=== PATIENT | female | born 1965 | race American Indian/Alaskan Native ===

== ENCOUNTER 2016-09-21 17:12 | Emergency (ER) | payer SELFPAY ==
[2016-09-21] MEDS ORDERED: MOTRIN PO ONE (20:37)
--- NOTE | 2016-09-21 20:37 | Emergency Department Report ---
Upper Extremity - HPI Chief Complaint: Extremity Problem,Nontraumatic Stated Complaint: SHOULDER/BACK/ARM PAIN Time Seen by Provider: 09/21/16 20:36 Upper Extremity: Left Shoulder Occurred When: >5 Days Severity: moderate Symptoms: Yes Pain with Movement (minor pain with left shoulder abduction), No Deformity, No Limited Range of Movement, No Numbness, No Weakness, No Swelling Other History: 51-year-old female past medical history hypertension presents with approximately 2 weeks of left upper shoulder pain, patient states that she feels discomfort in her upper left shoulder when she ranges her left shoulder. Denies any chest pain shortness of breath or palpitations, states that she has been taking Tylenol with minimal relief of this pain. Denies any history of FL in her mother or father. ED Review of Systems ROS: Stated complaint: SHOULDER/BACK/ARM PAIN Other details as noted in HPI ED Past Medical Hx - Past Medical History Hx Hypertension: Yes Additional medical history: Stomach problems - Surgical History Additional Surgical History: Partial Hysterectomy - Social History Smoking Status: Never Smoker Substance Use Type: Alcohol - Medications Home Medications: Home Medications Medication Instructions Recorded Confirmed Last Taken Type Ibuprofen [Motrin] 600 mg PO Q8H PRN #25 tablet 09/21/16 Unknown Rx Upper Extremity Exam - Exam General: Vital signs noted. No distress. Alert and acting appropriately. Head and Torso: No HEENT Abnormality, No Neck Tenderness, No Chest/Lungs Abnormality, No Abdominal Tenderness, No Back Tenderness Shoulder Exam: Yes Shoulder Tenderness (mild anteriro shoulder tenderss, reproducible anterior deltoid region, no rash on skin), Yes Normal Range of Motion in Shoulder, No Clavicle Tenderness, No Shoulder Deformity, No AC Joint Tenderness Arm Exam: No Arm/Humerus Tenderness, No Arm Deformity Elbow: No Elbow Tenderness, No Normal Range of Motion in Elbow, No Elbow Deformity Forearm: No Forearm Tenderness, No Forearm Deformity, No Pain with Pronation, No Pain with Supination Wrist: Yes Normal ROM in Wrist, No Wrist Tenderness, No Wrist Deformity, No Snuffbox Tenderness, No Pain with Axial Thumb Compression Hand: Yes Normal ROM in Digit(s), No Hand Tenderness, No Hand Deformity, No Digit Tenderness, No Digit(s) Deformity, No Tendon Dysfunction CMS Exam: Yes Normal Distal Pulses (distal radial, brachil pulses strong, cap refill less than 1 second all fingers), Yes Normal Capillary Refill, Yes Normal Distal Sensation, No Broken Skin ED Course Vital Signs 09/21/16 17:21 Temperature 98.2 F Pulse Rate 91 H Respiratory 18 Rate Blood Pressure 140/94 O2 Sat by Pulse 99 Oximetry ED Medical Decision Making - Lab Data Result diagrams: 09/21/16 20:53 09/21/16 20:53 - Medical Decision Making A/P: Musculoskeletal left shoulder pain 1-EKG, troponin, CK-MB within normal limits. Symptoms have been ongoing for almost 2 weeks. CK slightly elevated, patient tolerating by mouth so I encouraged her to increase her oral hydration she states she does not drink water often drinks more juice and coffee. 2-HEART score 1 points Low Score (0-3 points) Risk of MACE of 0.9-1.7%, JUSTIN score 1 points5% risk at 14 days of: all-cause mortality, new or recurrent FL, or severe recurrent ischemia requiring urgent revascularization. pt already on asa 81mg daily and clinical hx suggestive of muscluskeletal etiology of pain, reasomnable to DC w/ pmd and cards f/u, i instructed pt to call the referrals i gave her for f/u 3-Pt referred to PMD and cards 4-patient experienced significant relief of pain with one dose of extra strength Motrin, will give patient short course of Motrin for her discomfort 5- x-ray within normal limits. Critical care attestation.: If time is entered above; I have spent that time in minutes in the direct care of this critically ill patient, excluding procedure time. ED Disposition Clinical Impression: Shoulder pain Qualifiers: Laterality: left Chronicity: acute Qualified Code(s): M25.512 - Pain in left shoulder Disposition: DISCHARGED TO HOME OR SELFCARE Is pt being admited?: No Does the pt Need Aspirin: No Condition: Stable Instructions: Musculoskeletal Pain (ED) Prescriptions: Ibuprofen [Motrin] 600 mg PO Q8H PRN #25 tablet PRN Reason: Pain Referrals: [facility] [Outside] - 3-5 Days BRIELLE HARPER MD [Staff Physician] - 3-5 Days EVA SAM MD [Staff Physician] - 3-5 Days Forms: Accompanied Note, Work/School Release Form(ED) Time of Disposition: 22:08
[2016-09-21 21:09] LABS: Hematocrit 42.1 % (30.3-42.9); Hemoglobin 13.6 gm/dl (10.1-14.3); Mean Corpuscular HGB Conc 32 % (30-34); Mean Corpuscular Hemoglobin 29 pg (28-32); Mean Corpuscular Volume 89 fl (79-97); Platelet Count 192 K/mm3 (140-440); Red Blood Count 4.72 M/mm3 (3.65-5.03); Red Cell Distribution Width 14.8 % (13.2-15.2)
[2016-09-21 21:29] LABS: Creatine Kinase MB 2.1 ng/mL (0.0-4.0)
[2016-09-21 21:30] LABS: Anion Gap 19 mmol/L; BUN/Creatinine Ratio 11.25; Blood Urea Nitrogen 9 mg/dL (7-17); Calcium 9.8 mg/dL (8.4-10.2); Carbon Dioxide 27 mmol/L (22-30); Chloride 96.5 mmol/L (98-107); Creatine Kinase 221 units/L (30-135); Glucose 127 mg/dL (65-100); Potassium 3.8 mmol/L (3.6-5.0); Sodium 139 mmol/L (137-145)
[2016-09-21 22:00] LABS: Basophils % (Manual) 0 % (0.0-1.8); Blastocytes % (Manual) 0 %
[2016-09-21 22:02] LABS: Anisocytosis Few; Diff Status Complete; Platelet Estimate Consistent w Auto
[2016-09-21 22:20] VITALS: BP 117/88
--- NOTE | 2016-09-22 08:41 | XRay Report ---
Left shoulder 3 views. Findings: There is no evidence of fracture or other acute findings. Calcifications seen in the soft tissues adjacent to the lateral humeral head, probably due to tendinitis. A.c. joint narrowing is noted. Impression: No acute findings.
== END 2016-09-21 22:22 | disposition home or self-care (01) ==
LOC: ED 17:12
DX: M25.512 Pain in left shoulder (principal); I10 Essential (primary) hypertension
CPT/HCPCS: 36415; 80048; 82550; 82553; 84484; 85007; 85025